=== PATIENT | female | born 1970 | race Caucasian/White ===

== ENCOUNTER → 2021-03-30 | Outpatient (CLI) | payer BC ==
[~2021-03-30] MED LIST: COZAAR 50MG50 MG/TAB PO; NORCO 325 MG-51 TAB PO; PROTONIX 40MG T40 MG PO
== END ==
LOC: MC.RAD 08:22
DX: R92.1 Mammographic calcification found on diagnostic imaging of breast (principal)
CPT/HCPCS: 30635

== ENCOUNTER 2021-04-20 06:39 | Day surgery (SDC) | payer BC ==
[2021-04-20] VITALS (9 sets, daily range): BP systolic 98–137; BP diastolic 57–83; PULSE 22–71; TEMP 97.4–98.2
[~2021-04-20] VITALS: Ht 162.6 cm; Wt 67.3 kg
[2021-04-20] MEDS ORDERED: PROTONIX 40MG T40 MG PO (07:54)
[2021-04-20] MEDS ORDERED: COZAAR 50MG50 MG/TAB PO (07:55)
--- NOTE | 2021-04-20 11:50 | NUR ---
The patient was taken over via wheelchair to radiology to have the remainder of her images completed at this time. The patient's stayed back in her pre op room. Will continue to monitor the patient when she returns to the unit.
--- NOTE | 2021-04-20 18:30 | NUR ---
Patient arrived to floor at 1730 from surgery. SHe is alert and oriented. Denies nausea. Rating her pain at 2-3 on a 0-10 scale. She stated it is starting to pear picker since she is eating supper and moving her arms more. She has 2 LYN drains to bulb suction, drainage is dark red. Her is here, explained the visiting hours. She is eating supper without issues. Dressing to chest remains C/D/I. No other changes at this time. Call light within reach.
--- NOTE | 2021-04-20 20:00 | NUR ---
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 Assessment complete. A&Ox3. Rating pain 2/10 to chest post norco. Denies nausea/shortness of breath. VS stable-currently on post ops. Dressings to right and left chest CDI-bulky white/medipore tape. LYN drains to compression-emptied at this time-bloody output. Has tolerated PO and voiding. SCDs bilat. Instructed to use IS Q1H while awake. Verbalizes understanding/denies needs. Call light in reach. Will monitor.
[2021-04-21 00:19] VITALS: BP 88/50; PULSE 56; TEMP 98
[2021-04-21 01:00] VITALS: BP 98/52
--- NOTE | 2021-04-21 03:40 | NUR ---
Called with c/o pain to chest both left and right side. Rating pain 4/10 on pain scale-described as throbbing. Austin given per dr order. Tolerating PO.. INTd. Voiding without difficulty. Has been up in room independently. LYN #1 on right side with another 10mls of bloody fluid. LYN #2 on left side with 20mls of bloody fluid. Denies any questions/concerns. Call light in reach. Will monitor.
[2021-04-21 04:41] VITALS: BP 88/52; PULSE 55; TEMP 98.3
[2021-04-21 05:05] VITALS: BP 96/58
[2021-04-21 07:56] VITALS: BP 90/42; PULSE 53; TEMP 98.1
[2021-04-21] MEDS ORDERED: NORCO 325 MG-51 TAB PO (10:01)
--- NOTE | 2021-04-21 10:26 | NUR ---
Plan is home with spouse Franklin . SW met with patient and about care and plan for DC. Patient reports that she and her reside in [facility], Patientreports that her pcp is Bhakti Townsend and Carmen Craig. Patient reports that she will follow up with on Sunday April 25, 2021. Patient reports that she fills medicaitons at [facility] without [place] financial difficulty. Patient reports that her will transport her home. Patient was offer services for rehab, pt, and patient declined. Patient denies having any SI or HI concerns at this time and wants to manage pain. Educated on supports through case management. NF>
--- NOTE | 2021-04-21 11:00 | NUR ---
Changed dressings as ordered by Dr Hernandez. Incisions are well approximated with no drainage, reddness or bruising. Some edema noted but not pitting. Explained how to empty LYN drains and track the output. Showed her how to do the dressing changes. Discussed how to shower without getting dressings wet. Discharge instructions discussed with patient. No questions verbalized. Explained will discontinue IV when she is leaving. Marked the drains 1&2 so she can keep track of the output. No other changes at this time. Call light within reach.
--- NOTE | 2021-04-21 11:30 | NUR ---
Copies of discharge instructions given to patient. Belongings packed up by . INT discontinued. Patient ambulated out with this nurse.
== END 2021-04-21 11:30 | disposition home or self-care (01) ==
LOC: SURG 06:39 → SDCO 06:39 → SURG 17:30 → SDCO 04-21 11:30
DX: D05.12 Intraductal carcinoma in situ of left breast (principal); N60.11 Diffuse cystic mastopathy of right breast; Z17.0 Estrogen receptor positive status [ER+]; Z80.3 Family history of malignant neoplasm of breast; Z40.01 Encounter for prophylactic removal of breast; I10 Essential (primary) hypertension; K21.9 Gastro-esophageal reflux disease without esophagitis; F17.290 Nicotine dependence, other tobacco product, uncomplicated; Z79.899 Other long term (current) drug therapy
CPT/HCPCS: OP; A9541; J2250; J2704; J2795; J3010; J7120